=== PATIENT | male | born 1975 | race Caucasian/White ===

== ENCOUNTER 2017-04-28 08:20 | Inpatient (IN) ==
[2017-04-28] MEDS ORDERED: LORazepam 2 MG/1 ML VIAL ONE (08:41)
[2017-04-28] MEDS ORDERED: LORazepam 2 MG/1 ML VIAL IVP ONE ×3 (08:42→11:52)
[2017-04-28] MEDS ORDERED: Sodium Chloride 0.9% 1,000 ML PRIMARY IV ONE (08:42)
[2017-04-28] MEDS ORDERED: NORMAL SALINE 10 ML SYRINGE FLUSH IVP PRN ×2 (08:42→12:56)
[2017-04-28] MEDS ORDERED: Sodium Chloride 0.9% 1,000 ML, Magnesium Sulfate 2gm (Premix) 50 ML with Multivitamin I... IV ONE ×5 (08:44)
[2017-04-28 08:52] LABS: BASOPHILS # (AUTO) 0.09 10*3/UL; BASOPHILS % (AUTO) 1.3 % (0-1); EOSINOPHILS # (AUTO) 0.05 10*3/UL; EOSINOPHILS % (AUTO) 0.7 % (0-8); Hematocrit [HCT] 42.8 % (42.0-52.0); Hemoglobin [HGB] 13.8 g/dL (14.0-18.0); LYMPHOCYTES # (AUTO) 1.93 10*3/uL; MEAN CORPUSCULAR HEMOGLOBIN 30.7 PG (27-31); MEAN CORPUSCULAR HGB CONC 32.2 g/dL (33-37); MEAN CORPUSCULAR VOLUME 95.1 FL (80-90); MEAN PLATELET VOLUME 9.3 FL (7.4-12.2); MONOCYTES # (AUTO) 0.66 10*3/UL (0.3-0.8); MONOCYTES % (AUTO) 9.3 % (5-15); NEUTROPHILS # (AUTO) 4.32 10*3/UL; NEUTROPHILS % (AUTO) 61.3 % (50-80)
[2017-04-28] MEDS ORDERED: Famotidine Inj 20 MG in Normal Saline Flush 10 ML IVP ONE (08:53)
[2017-04-28 08:56] LABS: PLATELET MORPHOLOGY COMMENT NORMAL MORPHOLOGY (NORM); RBC MORPHOLOGY COMMENT NORMAL MORPHOLOGY (NORM); WBC MORPHOLOGY COMMENT NORMAL MORPHOLOGY (NORM)
[2017-04-28 09:06] LABS: BLOOD UREA NITROGEN 10 mg/dL (7-22); BUN/CREATININE RATIO 11.11 (6-20); MAGNESIUM 1.8 mg/dL (1.6-2.4); SERUM ALBUMIN 4.6 g/dL (3.5-4.8)
[2017-04-28 09:07] LABS: SALICYLATE < 1.0 mg/dl (0-20)
[2017-04-28 11:35] LABS: BILIRUBIN,URINE NEGATIVE (NEG); CLARITY,URINE CLEAR (CLEAR); COLOR,URINE YELLOW (Y); GLUCOSE, URINE (UA) NEGATIVE (NEG); NITRATE,URINE NEGATIVE (NEG); OCCULT BLOOD,URINE NEGATIVE (NEG); PH,URINE 5.5 (5.0-8.5); PROTEIN,URINE 30 mg/dl (NEG); UROBILINOGEN,URINE 0.2 EU/dL (0.2)
[2017-04-28 11:59] LABS: AMPHETAMINE SCREEN NEGATIVE (NEG); CANNABINOID SCREEN,URINE NEGATIVE (NEG); COCAINE SCREEN NEGATIVE (NEG); METHADONE URINE SCREEN NEGATIVE (NEG); METHAMPHETAMINES SCREEN,URINE NEGATIVE (NEG); OPIATE SCREEN,URINE NEGATIVE (NEG); URINE SAMPLE TYPE CLEAN CATCH URINE; URINE SPECIFIC GRAVITY - MAN 1.027
[2017-04-28] MEDS ORDERED: Sodium Chloride 0.9% 2,000 ML PRIMARY IV ONE (12:56)
[2017-04-28] MEDS ORDERED: LIDOCAINE W/ SODIUM BICARB 0.5 ML SYR SUBD PRN (12:56)
--- NOTE | 2017-04-28 12:56 | PDOC ---
General Adult HPI - General Chief Complaint: Drug / Alcohol Use &/or Abuse Stated Complaint: ETOH WITHDRAWL Date Seen by Provider: 04/28/17 Time Seen by Provider: 08:35 Source: POSITIVE: Patient Exam Limitations: POSITIVE: No limitations Nurse's Notes Reviewed & Considered: Yes - History of Present Illness Initial Comment: The patient is a 42-year-old male who is brought to the emergency room by an acquaintance. Patient states he has a long-standing history of chronic alcohol abuse. He also has a history of PTSD and anxiety disorder. He states he is on Seroquel, but has been out of this medication for the last 6 days. He drinks alcohol daily. He states he last drank last night, approximately 10 hours [employer] and states he had a liter of vodka at that time. He states he has a history of DVTs and has been treated for this problem in the past at the [facility] in [facility]. The person who brought the patient into the emergency room left shortly after the patient was admitted to the emergency room, and so he is not available for us to collect collateral information. On arrival to the emergency room the patient is hyperventilating and extremely anxious. He is tremulous and is rocking back and forth on the gurney. He keeps asking for a drink of alcohol to prevent him from going in to DTs. Patient states he has a history of alcohol withdrawal seizures. Have you received a tetanus shot in the past 10 years?: No Body Location Affected: REPORTS: Other (Tremulous, hyperventilating, hyperactive ) Timing: REPORTS: Gradual Duration: 4-6 hours Severity: Moderate Quality: REPORTS: Other (Patient denies any pain anywhere) Context: REPORTS: Other (As above) Modifying Factors: improves with: Other (Nausea) Similar Symptoms Previously: Yes (with delirium tremens in the past) Recent Care Received: REPORTS: Denies Any Prior Injuries Related to Current Complaint?: No - Patient Home Medications Home Medications: Home Medications Gabapentin 50 mg PO QAM 04/28/17 Gabapentin [Neurontin] 300 mg PO BEDTIME 04/28/17 Paroxetine HCl [Paxil] 10 mg PO BEDTIME 04/28/17 Quetiapine Fumarate [Seroquel] 300 mg PO BEDTIME 04/28/17 - Patient Allergies Allergies/Adverse Reactions: Allergies 3 Allergy/AdvReac Type Severity Reaction Status Date / Time prazosin Allergy NOT Verified 04/28/17 08:48 APPLICABLE Past Medical History - heen HEENT History: Denies History Cardiovascular History: Hypertension Respiratory History: Other (please comment) Additional Respiratory History: DISTAL ESOPHAGEAL HERNIA Gastrointestinal History: Hepatitis Additional Gastrointestinal History: HEPATITIS C Genitourinary History: Denies History Endocrine History: Denies History Musculoskeletal History: Denies History Prosthesis or Implant: No Neurological History: Denies History Blood Disorders: Denies History Psychiatric History: Anxiety Disorders, PTSD History of Sexually Transmitted Diseases: No Male Reproductive History: Denies History Cancer History: Denies History In Past Year Been Physically Harmed or Verbally Threatened: No (PER PATIENT) History of MDRO: No History of Other Communicable Diseases: No Tobacco Use: Current Every Day Smoker Type of alcohol normally used: Hard Liquor In the Past 12 Months, Have Used or Abuse Any Substance: None Previous Surgical History: Yes Type / Date of Surgery: TUMOR REMOVAL x2 FROM LEGS Anesthesia Reactions: No Malignant Hyperthermia: No Family History of Malignant Hyperthermia: No Significant Family History: No pertinent family hx Past Medical History Reviewed: Reviewed - No Changes ROS - Limitations ROS Limitations: No Limitations Constitution: REPORTS: Denies Symptoms Cardiovascular: REPORTS: Denies Cardiac Symptoms Respiratory: REPORTS: Denies Resp Symptoms Neurological: REPORTS: Denies Neuro Symptoms Gastrointestinal: REPORTS: Nausea Endocrine: REPORTS: Denies Symptoms Musculoskeletal: REPORTS: Denies MS Symptoms Genitourinary: REPORTS: Denies Symptoms Eyes: REPORTS: Denies Symptoms ENT: REPORTS: Denies Symptoms Skin: REPORTS: Denies Skin Symptoms Lympathic: REPORTS: Denies Lympathic Symptoms Immunologic: POSITIVE: Denies Symptoms Psychiatric: POSITIVE: Anxiety General Adult Exam - General Appearance General Appearance: POSITIVE: Alert, No Acute Distress, No Evidence of Trauma, Anxious, Uncooperative (Patient very anxious and tremulous. It is difficult for him to focus on my questions; he is very concerned about going into DTs and asked for alcohol to prevent him from doing so..). NEGATIVE: Cooperative - HEENT HEENT: POSITIVE: Head Inspection Nml, Eyes Inspection Nml, Ears Inspection Nml, Nose Inspection Nml, Oral/Dental Inspect. Nml, Pharynx Inspect. Nml, PERRL, EOMI - Pupils Pupil Size: 4 mm: Bilateral (PERRLA) - Neck Neck: POSITIVE: Normal Inspection, Thyroid Normal - Respiratory Respiratory: POSITIVE: No Respiratory Distress, Breath Sounds Normal, Chest Non- Tender - Cardiovascular Cardiovascular: POSITIVE: Regular Rate & Rhythm, No Murmur, No Gallop, PMI Normal, Tachycardia (110/m) Peripheral Pulses: Radial (R): 2+, Radial (L): 2+ - Abdomen Abdomen: Soft: (All Quadrants), Normal Bowel Sounds: (All Quadrants), Denies Tenderness: (All Quadrants), No Splenomegaly: (All Quadrants), No Hepatomegaly: (All Quadrants), No Guarding: (All Quadrants), No Rebound: (All Quadrants), No Palpable Pulse: (All Quadrants), No Palpabale Mass: (All Quadrants), No Distention: (All Quadrants), No Rigidity: (All Quadrants) - Back Back: POSITIVE: Normal Inspection - Skin Skin: POSITIVE: Normal Color, Warm, Dry, No Rash - Extremities Extremity: Non-Tender: (All Extremities), Normal ROM: (All Extremities), Normal Inspection: (All Extremities) - Neurological / Psychological Neurological: POSITIVE: Oriented X3, leak patcher Normal As Tested, Motor Normal. NEGATIVE: Affect Apporpriate General Adult Progress - Results Reviewed by me Lab Results Reviewed by Me: Yes CBC and BMP: 04/28/17 08:35 04/28/17 08:35 EKG Interpreted/Reviewed By Me:: Yes (sinus tachycardia) EKG Interpretation:: POSITIVE: Normal Intervals, Normal Bazine, Normal QRS, Normal ST/T, Abnormal EKG (Sinus tachycardia) - Patient's Progress Pain Medication Addressed: POSITIVE: Not Applicable Re-Examine Time: 09:25 Re-Examine Comment: Patient given 2 mg of Ativan and was started on a banana bag without potassium, consisting of 1 L of normal saline, 100 mg of thiamine, 1 mg Carroll casted and 2 g magnesium sulfate. Anxiety and tremulousness less. Patient slept for period of time. Re-Examine Time:: 11:30 Re-Examine Comment: Patient again very tremulous and hyperactive. Agitated. Patient given another 2 mg of Ativan IV with good effect. Status: POSITIVE: Improved, Re-Examined Antibiotics Given: No - Consult Consult (If Yes, Name of Consulting MD & Time Called): Yes (Dr. Tinoco, [id number]) Consulting MD will see pt:: POSITIVE: [facility] [place] Admit Counseled: POSITIVE: Patient, RE: Lab Results, RE: DX, RE: Need for F/U Patient Care Time - Estimated PCT Patient Care Time (In Minutes): 65 Vital Signs - Recent Vital Signs Vital Signs: Vital Signs (Last 8 hours) Temp Pulse Resp BP Pulse Ox 04/28/17 08:20 96.7 F L 99 24 123/83 98 - VS Reviewed Vital Signs Reviewed: Yes Discharge Clinical Impression: Alcohol abuse, Alcohol intoxication, Alcohol withdrawal syndrome Discharge Disposition: Admit to Inpatient Condition: Fair Date Decision to Admit to Inpatient: 04/28/17 Time Decision to Admit to Inpatient: 11:35
--- NOTE | 2017-04-28 13:41 | EKG ---
[address] [address] Measurements Intervals [place] Rate: 101 P: 49 MT: 110 QRS: 70 QRSD: 98 T: 65 QT: 382 QTc: 440 Interpretive Statements SINUS TACHYCARDIA WITH SHORT MT INTERVAL POSSIBLE RIGHT VENTRICULAR CONDUCTION DELAY [RSR (QR) IN V1/V2] NONSPECIFIC ST-T CHANGES ABNORMAL RHYTHM ECG No previous ECG available for comparison Electronically Signed On 04-28-17 17:02:24 MDT by Mario You [email or web address]
[2017-04-28] MEDS: ONDANSETRON 4 MG/2 ML VIAL IVP PRN ×2 (14:24→18:34)
[2017-04-28] MEDS ORDERED: Diazepam 10 mg Tab (ETOH withdrawal) PO PRN (15:31)
--- NOTE | 2017-04-28 15:48 | PDOC ---
HPI - History of Present Illness Date and Time of Service: 04/28/2017, 1535 Chief Complaint: Alcohol abuse History of Present Illness: This is a 42-year-old male with post medics stress disorder, chronic hepatitis C , and a binge alcohol pattern of drinking. The patient presented with a blood alcohol level of 245 and I was told that he was in alcohol withdrawal. I discussed this with the patient and told him that this is alcohol intoxication. He states that he has a binge alcohol drinking pattern and his drink heavily for the last 6 days. He used to live in [place], [place], but has recently been in [facility] and started drinking heavily again about a year ago. He states that he no [facility] has a dual diagnosis program where they treat both alcohol addiction and post traumatic stress disorder. He states that he drinks in order to mask his symptoms of PTSD. 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 He has been disabled from his PTSD since at least 2003. He notes he's had several legal problems with his alcohol abuse including driving while under the influence. He is estranged from his family. 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 He states he had 3 years of alcohol sobriety after a dual diagnosis program in the [facility]. He notes to me that he was actually heading back to [place] when he spent some time with his friend here and started drinking again. He was going to try to get tied back into the [facility] system to receive help for his PTSD and for his alcohol abuse. He has no other medical issues. Past Medical History Medical History: 1. Alcohol abuse. 2. PTSD Surgical History: None Pertinent Family History: Denies any history of diabetes or heart disease in the family. Past Social History: Binge alcohol drinks. On disability. Has 2 children that are adults that he is estranged from but he describes as healthy. 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 Smokes. Tobacco Use: Current Every Day Smoker Do you dip or chew tobacco: No In the Past 12 Months, Have Used or Abuse Any of the Following Substance: None Alcohol Use: Heavy Medication / Allergies Home Medications: Home Medications Medication Instructions Recorded Confirmed Type Gabapentin 50 mg PO QAM 04/28/17 04/28/17 History Gabapentin [Neurontin] 300 mg PO BEDTIME 04/28/17 04/28/17 History Paroxetine HCl [Paxil] 10 mg PO BEDTIME 04/28/17 04/28/17 History Quetiapine Fumarate [Seroquel] 300 mg PO BEDTIME 04/28/17 04/28/17 History Allergies/Adverse Reactions: Allergies 3 Allergy/AdvReac Type Severity Reaction Status Date / Time prazosin Allergy NOT Verified 04/28/17 13:45 APPLICABLE Review of Systems - Review of Systems All Systems: Reviewed & No Additional Complaints Except as Stated (I did a 12 point review systems and it is negative other than that discussed in history present illness and that noted below.) - Musculoskeletal Musculoskeletal: REPORTS: Other (Has left ankle pain. States that he had an x- ray done and shared in about a week ago but he does not know [facility]. He has been able to walk on it.) Exam - Vitals Vital Signs: Vital Signs Temperature 98.5 F Temperature Source Temporal Artery Scan Pulse Rate [Pulse Oximeter] 82 Pulse Rate 82 Respiratory Rate 20 Blood Pressure [Right Arm] 137/82 Blood Pressure 137/82 Pulse Ox 95 Oxygen Delivery Method Room Air Height 6 ft Weight 217 lb - General General Appearance: No Acute Distress, Cooperative Additional General Exam Details: Intoxicated, smells of alcohol, no signs or symptoms to suggest alcohol withdrawal. - Head Head Exam: Normal Inspection, Normocephalic, Atraumatic - Eye Eye Exam: POSITIVE: No Scleral Icterus - ENT ENT Exam: POSITIVE: Mucous Membranes Dry - Neck Neck Exam: Normal Inspection, No Tenderness, No Lymphadenopathy, No Thyromegaly - Respiratory Respiratory Exam: POSITIVE: Clear to Auscultation - Bilaterally, Breathing Non Labored, Normal to Percussion and Palpation - Cardiovascular Cardiovascular Exam: POSITIVE: RRR, No Murmur, No Clicks, No Gallops, No Rubs, No JVD - GI/Abdominal GI/Abdominal Exam: POSITIVE: Normal Bowel Sounds, Non Tender, Non Distended, Soft - Rectal Rectal Exam: POSITIVE: Deferred - External Exam: POSITIVE: Deferred Exam: POSITIVE: Deferred - Extremities Extremities Exam: POSITIVE: No Clubbing Present, No Edema Present, No Cyanosis Present, Joint Swelling (Has left ankle swelling, nontender to palpation. No bruising. Pulses are intact bilaterally for dorsalis pedis pulses.) - Back Back Exam: POSITIVE: Normal Inspection, No CVA Tenderness - Neurological Neurological Exam: POSITIVE: Alert, Oriented x 3, No Facial Droop, Speech Intact / Clear, Moves All Extremities Equally - Psychiatric Psychiatric Exam: POSITIVE: Depressed Additional Psychiatric Exam Details: Patient denies suicidal or homicidal ideation. Results - Labs CBC and BMP: 04/28/17 08:35 04/28/17 08:35 Additional Lab Results: Laboratory Results 04/28/17 04/28/17 04/28/17 Range/Units 08:35 08:35 08:35 WBC 7.06 (4.8-10.8) 10^3/uL RBC 4.50 L (4.70-6.10) 10^6/uL Hgb 13.8 L (14.0-18.0) g/dL Hct 42.8 (42.0-52.0) % MCV 95.1 H (80-90) FL MCH 30.7 (27-31) PG MCHC 32.2 L (33-37) g/dL RDW Std Deviation 49.1 (39-50) fL RDW Coeff of Dona 14.6 H (11.5-14.5) % Plt Count 230 (140-350) 10*3/uL MPV 9.3 (7.4-12.2) FL Immature Gran % (Auto) 0.1 (0-5) % Neut % (Auto) 61.3 (50-80) % Lymph % (Auto) 27.3 (10-50) % Gaines % (Auto) 9.3 (5-15) % Eos % (Auto) 0.7 (0-8) % Baso % (Auto) 1.3 H (0-1) % Immature Gran # (Auto) 0.01 10*3/UL Neut # (Auto) 4.32 10*3/UL Lymph # (Auto) 1.93 10*3/uL Gaines # (Auto) 0.66 (0.3-0.8) 10*3/UL Eos # (Auto) 0.05 10*3/UL Baso # (Auto) 0.09 10*3/UL WBC Morphology Comment Normal morphology (NORM) Plt Morphology Comment Normal morphology (NORM) RBC Morph Comment Normal morphology (NORM) Sodium 142 (135-145) meq/L Potassium 4.0 (3.8-5.2) meq/L Chloride 103 (98-112) meq/L Carbon Dioxide 12 L (23-33) meq/L Anion Gap 27 H (5-20) BUN 10 (7-22) mg/dL Creatinine 0.9 (0.70-1.50) mg/dL Estimated GFR > 60 (>60 ml/min/1.73m(2)) BUN/Creatinine Ratio 11.11 (6-20) Glucose 75 L (78-110) mg/dL Calculated Osmolality 291.0 (267-292) mOsm/kg Calcium 9.3 (8.7-10.7) mg/dL Magnesium 1.8 (1.6-2.4) mg/dL Total Bilirubin 1.5 H (0.3-1.2) mg/dL AST 313 H (21-57) IU/L ALT 176 H (21-72) IU/L Alkaline Phosphatase 121 (38-126) IU/L Ammonia (9.0-33.0) UMOL/L Total Protein 7.5 (6.1-8.0) g/dL Albumin 4.6 (3.5-4.8) g/dL Globulin 2.9 (2.50-4.10) g/dL Albumin/Globulin Ratio 1.50 (1.3-2.0) mg/g Lipase (23-300) IU/L TSH 0.363 (0.2700-4.2000) uIU/mL Ur Collection Type Urine Color (Y) Urine Clarity (CLEAR) Urine pH (5.0-8.5) Ur Specific [place] (1.005-1.030) U Specif Grav (Refrac) Urine Protein (NEG) mg/dl Urine Glucose (UA) (NEG) mg/dL Urine Ketones (NEG) Urine Occult Blood (NEG) Urine Nitrate (NEG) Urine Bilirubin (NEG) Urine Urobilinogen (0.2) EU/dL Ur Leukocyte Esterase (NEG) Urine RBC (NONE) /hpf Urine WBC (NONE) Ur Squamous Epith Cells (NONE) Ur Renal Epithelial Cell (NONE) Urine Crystals Urine Bacteria (NONE) Urine Casts (NONE) Urine Mucus (NONE) Urine Trichomonas (NONE) Urine Yeast (NONE) Ur Culture Indicated? Salicylates < 1.0 (0-20) mg/dl Urine Opiates Screen (NEG) Ur Buprenorphine (NEG) Ur Oxycodone Screen (NEG) Urine Methadone Screen (NEG) Ur Propoxyphene Screen (NEG) Acetaminophen < 10.0 (0-30) ug/mL Barbiturate Screen (NEG) U Tricyclic Antidepress (NEG) Phencyclidine Screen (NEG) Amphetamines Screen (NEG) U Methamphetamines Scrn (NEG) Benzodiazepines Screen (NEG) Cocaine Screen (NEG) U Marijuana (THC) Screen (NEG) Serum Alcohol 245 H (0-10) mg/dL 04/28/17 04/28/17 04/28/17 Range/Units 08:42 09:46 14:46 WBC (4.8-10.8) 10^3/uL RBC (4.70-6.10) 10^6/uL Hgb (14.0-18.0) g/dL Hct (42.0-52.0) % MCV (80-90) FL MCH (27-31) PG MCHC (33-37) g/dL RDW Std Deviation (39-50) fL RDW Coeff of Dona (11.5-14.5) % Plt Count (140-350) 10*3/uL MPV (7.4-12.2) FL Immature Gran % (Auto) (0-5) % Neut % (Auto) (50-80) % Lymph % (Auto) (10-50) % Gaines % (Auto) (5-15) % Eos % (Auto) (0-8) % Baso % (Auto) (0-1) % Immature Gran # (Auto) 10*3/UL Neut # (Auto) 10*3/UL Lymph # (Auto) 10*3/uL Gaines # (Auto) (0.3-0.8) 10*3/UL Eos # (Auto) 10*3/UL Baso # (Auto) 10*3/UL WBC Morphology Comment (NORM) Plt Morphology Comment (NORM) RBC Morph Comment (NORM) Sodium (135-145) meq/L Potassium (3.8-5.2) meq/L Chloride (98-112) meq/L Carbon Dioxide (23-33) meq/L Anion Gap (5-20) BUN (7-22) mg/dL Creatinine (0.70-1.50) mg/dL Estimated GFR (>60 ml/min/1.73m(2)) BUN/Creatinine Ratio (6-20) Glucose (78-110) mg/dL Calculated Osmolality (267-292) mOsm/kg Calcium (8.7-10.7) mg/dL Magnesium (1.6-2.4) mg/dL Total Bilirubin (0.3-1.2) mg/dL AST (21-57) IU/L ALT (21-72) IU/L Alkaline Phosphatase (38-126) IU/L Ammonia < 9 L (9.0-33.0) UMOL/L Total Protein (6.1-8.0) g/dL Albumin (3.5-4.8) g/dL Globulin (2.50-4.10) g/dL Albumin/Globulin Ratio (1.3-2.0) mg/g Lipase 258 (23-300) IU/L TSH (0.2700-4.2000) uIU/mL Ur Collection Type Clean catch urine Urine Color Yellow (Y) Urine Clarity Clear (CLEAR) Urine pH 5.5 (5.0-8.5) Ur Specific [place] >=1.030 (1.005-1.030) U Specif Grav (Refrac) 1.027 Urine Protein 30 A (NEG) mg/dl Urine Glucose (UA) Negative (NEG) mg/dL Urine Ketones >=160 (NEG) Urine Occult Blood Negative (NEG) Urine Nitrate Negative (NEG) Urine Bilirubin Negative (NEG) Urine Urobilinogen 0.2 (0.2) EU/dL Ur Leukocyte Esterase Negative (NEG) Urine RBC None (NONE) /hpf Urine WBC None (NONE) Ur Squamous Epith Cells None (NONE) Ur Renal Epithelial Cell None (NONE) Urine Crystals None Urine Bacteria None (NONE) Urine Casts None (NONE) Urine Mucus Rare (NONE) Urine Trichomonas None (NONE) Urine Yeast None (NONE) Ur Culture Indicated? Culture not set Salicylates (0-20) mg/dl Urine Opiates Screen Negative (NEG) Ur Buprenorphine Negative (NEG) Ur Oxycodone Screen Negative (NEG) Urine Methadone Screen Negative (NEG) Ur Propoxyphene Screen Negative (NEG) Acetaminophen (0-30) ug/mL Barbiturate Screen Negative (NEG) U Tricyclic Antidepress Negative (NEG) Phencyclidine Screen Negative (NEG) Amphetamines Screen Negative (NEG) U Methamphetamines Scrn Negative (NEG) Benzodiazepines Screen Positive H (NEG) Cocaine Screen Negative (NEG) U Marijuana (THC) Screen Negative (NEG) Serum Alcohol (0-10) mg/dL Assessment and Plan - Patient Problems (1) Alcohol abuse Current Visit: Yes Status: Acute Code(s): F10.10 - Alcohol abuse, uncomplicated (2) Alcohol intoxication Current Visit: Yes Status: Acute Code(s): F10.929 - Alcohol use, unspecified with intoxication, unspecified (3) PTSD (post-traumatic stress disorder) Current Visit: Yes Status: Acute Code(s): F43.10 - Post-traumatic stress disorder, unspecified - Assessment / Plan Additional Assessment/Plan Details: At this time, there is clinically no alcohol withdrawal. This is a patient that has alcohol intoxication. He states his drinking is in relation to PTSD and his goal was to get to the [facility] system as [facility] for their [facility] diagnosis program of some type for both PTSD and alcohol abuse therapy. His liver enzymes are elevated because he has hepatitis C and is drinking alcohol as well. He is not a candidate at this time for hepatitis C therapy. It is likely that this patient could go into alcohol withdrawal with his binge pattern drinking. We placed a call to the [facility] system, and we'll try to get the patient transferred there if we can have him stabilized from any alcohol withdrawal that develops in the next 24 hours. I think that the resources for PTSD therapy are much better in that system. For the left ankle, we will get an x-ray to make sure that there is no fracture. Check electrolytes tomorrow. Lots of fluids as the patient is clearly dehydrated. Discussed the plan with the patient and he agreed.
--- NOTE | 2017-04-28 16:13 | DI ---
Exam: FILM OTHER left ankle INDICATION: Patient states he rolled his ankle one week ago, pain to lateral aspect of ankle COMPARISON: none FINDINGS: 2 views of the left ankle are obtained. No fracture or malalignment. Joint spaces maintained. No joint effusion. Mortise joint is intact. No calcaneal spurs. No arthritic changes identified. Soft tissue swelling overlying the lateral and medial malleolus and anteriorly. There is soft tissue subcutaneous edema in the lower leg also noted. Remaining solid Tissues are unremarkable by radiograph exam. IMPRESSION: No fracture or malalignment. Soft tissue swelling surrounding the ankle and serpiginous edema in the lower leg.
[2017-04-28] MEDS: Sodium Chloride 0.9% 1,000 ML PRIMARY IV SCH (16:27)
[2017-04-28] MEDS: Diazepam Inj (ETOH withdrawal)10 MG/2 ML CARPUJECT IVP PRN ×3 (18:43→23:39)
[2017-04-28] MEDS ORDERED: ChlordiazePOXIDE 25mg Cap (ETOH withdrawal) PO SCH (21:00)
[2017-04-29] MEDS: Sodium Chloride 0.9% 1,000 ML PRIMARY IV SCH ×3 (00:03→17:24)
[2017-04-29] MEDS: Diazepam Inj (ETOH withdrawal)10 MG/2 ML CARPUJECT IVP PRN ×3 (01:11→10:29)
[2017-04-29 05:14] LABS: BASOPHILS # (AUTO) 0.02 10*3/UL; BASOPHILS % (AUTO) 0.5 % (0-1); EOSINOPHILS # (AUTO) 0.13 10*3/UL; EOSINOPHILS % (AUTO) 3.5 % (0-8); Hematocrit [HCT] 35.3 % (42.0-52.0); Hemoglobin [HGB] 11.4 g/dL (14.0-18.0); LYMPHOCYTES # (AUTO) 1.19 10*3/uL; MEAN CORPUSCULAR HEMOGLOBIN 30.4 PG (27-31); MEAN CORPUSCULAR HGB CONC 32.3 g/dL (33-37); MEAN CORPUSCULAR VOLUME 94.1 FL (80-90); MEAN PLATELET VOLUME 9.9 FL (7.4-12.2); MONOCYTES % (AUTO) 13.4 % (5-15); NEUTROPHILS % (AUTO) 50.8 % (50-80); RED BLOOD COUNT 3.75 10^6/uL (4.70-6.10)
[2017-04-29 05:31] LABS: BLOOD UREA NITROGEN 5 mg/dL (7-22); BUN/CREATININE RATIO 7.14 (6-20); MAGNESIUM 1.8 mg/dL (1.6-2.4); SERUM ALBUMIN 3.1 g/dL (3.5-4.8)
[2017-04-29 05:38] LABS: PLATELET MORPHOLOGY COMMENT NORMAL MORPHOLOGY (NORM); RBC MORPHOLOGY COMMENT NORMAL MORPHOLOGY (NORM); WBC MORPHOLOGY COMMENT NORMAL MORPHOLOGY (NORM)
[2017-04-29] MEDS ORDERED: ChlordiazePOXIDE Cap 25 MG CAPSULE PO SCH (09:00)
[2017-04-29] MEDS ORDERED: Dexmedetomidine/NS 400 MCG/100 ML INFUS..BTL IV ONE (10:42)
[2017-04-29] MEDS ORDERED: DIAZEPAM 10 MG/2 ML (5 MG/1 ML) CARPUJECT IVP ONE (10:54)
[2017-04-29] MEDS ORDERED: Dexmedetomidine/NS 400 MCG/100 ML INFUS..BTL IV SCH (11:00)
[2017-04-29] MEDS ORDERED: LIDOCAINE W/ SODIUM BICARB 0.5 ML SYR SUBD PRN (12:16)
[2017-04-29] MEDS ORDERED: NORMAL SALINE 10 ML SYRINGE FLUSH IVP PRN (12:16)
[2017-04-29] MEDS ORDERED: ONDANSETRON 4 MG/2 ML VIAL IVP PRN (12:16)
[2017-04-29] MEDS ORDERED: Diazepam Inj (ETOH withdrawal)10 MG/2 ML CARPUJECT IVP PRN (12:16)
[2017-04-29] MEDS ORDERED: Diazepam 10 mg Tab (ETOH withdrawal) PO PRN (12:16)
[2017-04-29] MEDS ORDERED: LORazepam Inj(ETOH withdrawal) 2 MG/ML VIAL IVP PRN (14:43)
[2017-04-29] MEDS ORDERED: LORazepam 1 mg tab (ETOH withdrawal) PO PRN (14:43)
[2017-04-29] MEDS: Dexmedetomidine/NS 400 MCG/100 ML INFUS..BTL IV SCH ×2 (16:04→22:00)
[2017-04-29] MEDS: ChlordiazePOXIDE Cap 25 MG CAPSULE PO SCH ×2 (16:04→20:25)
--- NOTE | 2017-04-29 19:02 | PDOC(PROG) ---
Date and Time of Service: 12/27/2016, 1900 Interval History: Patient is clearly in delirium tremens and detox and went into it early this afternoon. In the morning he was fine, somewhat sleepy, and was resting comfortably, but became very agitated, quite sure as his acute alcohol intoxication wore off. The patient's girlfriend or ex-girlfriend from [facility] called and offered information about the patient. She states that he drinks very heavily until he runs out of money each month and when he gets his disability check he goes and drinks again. He has been having a habit of presenting to hospitals when he runs out of money and cannot buy alcohol. He was just recently discharged from a rehabilitation facility. Objective : Data - Labs CBC and BMP: 04/29/17 04:25 04/29/17 04:25 Objective : Exam - General General Appearance: Severe Distress (Severe agitation today but required both Precedex and benzodiazepines) - Eye Eye Exam: No Scleral Icterus - ENT ENT Exam: Mucous Membranes Moist - Respiratory Respiratory Exam: Clear to Auscultation - Bilaterally, Breathing Non Labored - Cardiovascular Cardiovascular Exam: RRR, No Murmur, No Clicks, No Gallops, No Rubs, No JVD - GI/Abdominal GI/Abdominal Exam: Normal Bowel Sounds, Non Tender, Non Distended, Soft - Extremities Extremities Exam: No Clubbing Present, No Edema Present, No Cyanosis Present, Joint Swelling (Left ankle, about the same as yesterday.) - Neurological Neurological Exam: Alert, Oriented x 3 (Thus far, not hallucinating.), No Facial Droop, Speech Intact / Clear Assessment and Plan - Patient Problems (1) Delirium tremens Current Visit: Yes Status: Acute Code(s): F10.231 - Alcohol dependence with withdrawal delirium (2) Alcohol abuse Current Visit: Yes Status: Chronic Code(s): F10.10 - Alcohol abuse, uncomplicated (3) Alcohol intoxication Current Visit: Yes Status: Resolved Code(s): F10.929 - Alcohol use, unspecified with intoxication, unspecified (4) PTSD (post-traumatic stress disorder) Current Visit: Yes Status: Acute Code(s): F43.10 - Post-traumatic stress disorder, unspecified - Assessment / Plan Additional Assessment/Plan Details: Transfer to the ICU for Precedex drip, and benzodiazepines. Pharmacy in for me today that we are on a national shortage of Valium, so we will switch to Ativan. Continue Librium. Naltrexone may be a good option for this patient to try and discourage heavy drinking. I may consider starting that if the patient does well with his detox. However having had multiple episodes of alcohol detox, he is a much greater risk of having adverse effects happen. Replace potassium. ICU monitoring. Prognosis now is extremely guarded.
[2017-04-30] MEDS: Sodium Chloride 0.9% 1,000 ML PRIMARY IV SCH ×2 (01:32→09:16)
[2017-04-30] MEDS: Dexmedetomidine/NS 400 MCG/100 ML INFUS..BTL IV SCH ×2 (02:14→08:05)
[2017-04-30 04:33] LABS: BASOPHILS # (AUTO) 0.03 10*3/UL; BASOPHILS % (AUTO) 0.9 % (0-1); EOSINOPHILS # (AUTO) 0.24 10*3/UL; EOSINOPHILS % (AUTO) 7.4 % (0-8); Hematocrit [HCT] 34.8 % (42.0-52.0); Hemoglobin [HGB] 11.5 g/dL (14.0-18.0); MEAN CORPUSCULAR HEMOGLOBIN 31.2 PG (27-31); MEAN CORPUSCULAR VOLUME 94.3 FL (80-90); MEAN PLATELET VOLUME 10.3 FL (7.4-12.2); MONOCYTES # (AUTO) 0.38 10*3/UL (0.3-0.8); MONOCYTES % (AUTO) 11.7 % (5-15); NEUTROPHILS % (AUTO) 49.2 % (50-80); RED BLOOD COUNT 3.69 10^6/uL (4.70-6.10)
[2017-04-30 04:35] LABS: PLATELET MORPHOLOGY COMMENT NORMAL MORPHOLOGY (NORM); RBC MORPHOLOGY COMMENT NORMAL MORPHOLOGY (NORM); WBC MORPHOLOGY COMMENT NORMAL MORPHOLOGY (NORM)
[2017-04-30 04:46] LABS: BLOOD UREA NITROGEN 3 mg/dL (7-22); BUN/CREATININE RATIO 4.28 (6-20); MAGNESIUM 1.8 mg/dL (1.6-2.4); SERUM ALBUMIN 3.3 g/dL (3.5-4.8)
[2017-04-30] MEDS: ChlordiazePOXIDE Cap 25 MG CAPSULE PO SCH (08:51)
[2017-04-30 11:23] VITALS: O2SAT 95
[2017-04-30 13:46] VITALS: BP 133/98; RESP 18; TEMP 98.5
[2017-04-30] MEDS ORDERED: LORazepam Inj(ETOH withdrawal) 2 MG/ML VIAL IVP PRN (14:19)
[2017-04-30] MEDS ORDERED: ONDANSETRON 4 MG/2 ML VIAL IVP PRN (14:19)
[2017-04-30] MEDS ORDERED: LIDOCAINE W/ SODIUM BICARB 0.5 ML SYR SUBD PRN (14:19)
[2017-04-30] MEDS ORDERED: NORMAL SALINE 10 ML SYRINGE FLUSH IVP PRN (14:19)
[2017-04-30] MEDS ORDERED: LORazepam 1 mg tab (ETOH withdrawal) PO PRN (14:19)
[2017-04-30] MEDS ORDERED: ChlordiazePOXIDE Cap 25 MG CAPSULE PO SCH (15:00)
--- NOTE | 2017-04-30 15:14 | DCSUMMARY ---
Hospitalization Summary Admit Date: 04/28/17 Discharge Date: 04/30/17 Primary Diagnosis:: alcohol withdrawal, resolved Secondary Diagnosis:: 1. Acute alcohol intoxication. 2. Chronic alcoholism Hospital Course: This 42-year-old male with hepatitis C and PTSD that showed up to the emergency room with a blood alcohol of 245 and was irritable, agitated, and was thought to be in alcohol withdrawal. When I admitted him he was clearly not in alcohol withdrawal but intoxicated. On day 2 of the hospital stay, the patient did go into alcohol withdrawal and required Precedex therapy as well as benzodiazepines. As we had a shortage of Valium, and use Ativan. He is to Precedex drip and our policy at this hospital is to keep patients on IV drips because of the complexity of the IV drip, in the ICU. Luckily, this patient was very fast recover from his alcohol withdrawal and we were able to titrate off his Precedex drip today. He is alert, wishes to leave, and has been nonchalant in terms of his approach to his alcoholism. Sometimes he'll tell us that he's wanting to get help, and then in the same breath, he turns red around and states that he wants to get out of here to drink. He is conveyed different opinions to different people. The patient had a swollen left ankle, we did x-ray, no evidence of fracture. It is consistent with a sprain. We wrapped it with an Tee wrap and placed ice on it and have instructed him to continue to use ice and elevation to help him overcome this. He does not have chest pain, shortness breath, nausea or vomiting, abdominal pain, or agitation or tremors. I examined him twice today. Patient is discharged. Assessment and Plan: 1. As per discharge assessments noted 2. Disposition: Patient is discharged home 3. Condition on discharge, stable and improved. 4. Diet: regular diet 5. Activities: Stop drinking alcohol 6. Follow-Up: 1. Visit your primary care provider within the [place]. 2. 7. Medications at the Time of Discharge: Home Medications Medication Instructions Recorded Confirmed Type Gabapentin 50 mg PO QAM 04/28/17 04/28/17 History Gabapentin [Neurontin] 300 mg PO BEDTIME 04/28/17 04/28/17 History Paroxetine HCl [Paxil] 10 mg PO BEDTIME 04/28/17 04/28/17 History Quetiapine Fumarate [Seroquel] 300 mg PO BEDTIME 04/28/17 04/28/17 History The patient can resume his medications as per the [facility]. At this time , I think with the alcoholism and insistent alcohol use I would recommend that the patient not take these medications as I do not know whether the alcohol is making his symptoms worse or not. 8. Time, care, counseling and coordination of care for this discharge is greater than 30 minutes. Exam - Vitals Vital Signs: Vital Signs Temperature 98.5 F Temperature Source Oral Pulse Rate [Apical] 86 Pulse Rate [Bilateral Apical] 66 Pulse Rate [Pulse Oximeter] 87 Pulse Rate 89 Respiratory Rate 18 Blood Pressure [Left Arm] 133/98 Blood Pressure [Right Arm] 134/105 Blood Pressure 131/98 Pulse Ox 95 Oxygen Flow Rate 1 Oxygen Delivery Method Room Air Height 6 ft Was on room air for my evaluation and satting above 91%. - General General Appearance: No Acute Distress, Cooperative - Head Head Exam: Normal Inspection, Normocephalic, Atraumatic - Eye Eye Exam: POSITIVE: No Scleral Icterus - ENT ENT Exam: POSITIVE: Mucous Membranes Moist - Respiratory Respiratory Exam: POSITIVE: Clear to Auscultation - Bilaterally, Breathing Non Labored - Cardiovascular Cardiovascular Exam: POSITIVE: RRR, No Murmur, No Clicks, No Gallops, No Rubs, No JVD - GI/Abdominal GI/Abdominal Exam: POSITIVE: Normal Bowel Sounds, Non Tender, Non Distended, Soft - Extremities Extremities Exam: POSITIVE: No Clubbing Present, No Edema Present, No Cyanosis Present - Neurological Neurological Exam: POSITIVE: Alert, Oriented x 3, Normal Gait, No Facial Droop, Speech Intact / Clear, Moves All Extremities Equally Data Perinent Studies: Laboratory Results 04/28/17 04/28/17 04/28/17 Range/Units 08:35 08:35 08:35 WBC 7.06 (4.8-10.8) 10^3/uL RBC 4.50 L (4.70-6.10) 10^6/uL Hgb 13.8 L (14.0-18.0) g/dL Hct 42.8 (42.0-52.0) % MCV 95.1 H (80-90) FL MCH 30.7 (27-31) PG MCHC 32.2 L (33-37) g/dL RDW Std Deviation 49.1 (39-50) fL RDW Coeff of Dona 14.6 H (11.5-14.5) % Plt Count 230 (140-350) 10*3/uL MPV 9.3 (7.4-12.2) FL Immature Gran % (Auto) 0.1 (0-5) % Neut % (Auto) 61.3 (50-80) % Lymph % (Auto) 27.3 (10-50) % [place] % (Auto) 9.3 (5-15) % Eos % (Auto) 0.7 (0-8) % Baso % (Auto) 1.3 H (0-1) % Immature Gran # (Auto) 0.01 10*3/UL Neut # (Auto) 4.32 10*3/UL Lymph # (Auto) 1.93 10*3/uL [place] # (Auto) 0.66 (0.3-0.8) 10*3/UL Eos # (Auto) 0.05 10*3/UL Baso # (Auto) 0.09 10*3/UL WBC Morphology Comment Normal morphology (NORM) Plt Morphology Comment Normal morphology (NORM) RBC Morph Comment Normal morphology (NORM) PT (9.7-11.4) secs INR (0.00-5.90) N/A Sodium 142 (135-145) meq/L Potassium 4.0 (3.8-5.2) meq/L Chloride 103 (98-112) meq/L Carbon Dioxide 12 L (23-33) meq/L Anion Gap 27 H (5-20) BUN 10 (7-22) mg/dL Creatinine 0.9 (0.70-1.50) mg/dL Estimated GFR > 60 (>60 ml/min/1.73m(2)) BUN/Creatinine Ratio 11.11 (6-20) Glucose 75 L (78-110) mg/dL Calculated Osmolality 291.0 (267-292) mOsm/kg Calcium 9.3 (8.7-10.7) mg/dL Magnesium 1.8 (1.6-2.4) mg/dL Total Bilirubin 1.5 H (0.3-1.2) mg/dL AST 313 H (21-57) IU/L ALT 176 H (21-72) IU/L Alkaline Phosphatase 121 (38-126) IU/L Ammonia (9.0-33.0) UMOL/L Total Protein 7.5 (6.1-8.0) g/dL Albumin 4.6 (3.5-4.8) g/dL Globulin 2.9 (2.50-4.10) g/dL Albumin/Globulin Ratio 1.50 (1.3-2.0) mg/g Lipase (23-300) IU/L TSH 0.363 (0.2700-4.2000) uIU/mL Ur Collection Type Urine Color (Y) Urine Clarity (CLEAR) Urine pH (5.0-8.5) Ur Specific [place] (1.005-1.030) U Specif Grav (Refrac) Urine Protein (NEG) mg/dl Urine Glucose (UA) (NEG) mg/dL Urine Ketones (NEG) Urine Occult Blood (NEG) Urine Nitrate (NEG) Urine Bilirubin (NEG) Urine Urobilinogen (0.2) EU/dL Ur Leukocyte Esterase (NEG) Urine RBC (NONE) /hpf Urine WBC (NONE) Ur Squamous Epith Cells (NONE) Ur Renal Epithelial Cell (NONE) Urine Crystals Urine Bacteria (NONE) Urine Casts (NONE) Urine Mucus (NONE) Urine Trichomonas (NONE) Urine Yeast (NONE) Ur Culture Indicated? Salicylates < 1.0 (0-20) mg/dl Urine Opiates Screen (NEG) Ur Buprenorphine (NEG) Ur Oxycodone Screen (NEG) Urine Methadone Screen (NEG) Ur Propoxyphene Screen (NEG) Acetaminophen < 10.0 (0-30) ug/mL Barbiturate Screen (NEG) U Tricyclic Antidepress (NEG) Phencyclidine Screen (NEG) Amphetamines Screen (NEG) U Methamphetamines Scrn (NEG) Benzodiazepines Screen (NEG) Cocaine Screen (NEG) U Marijuana (THC) Screen (NEG) Serum Alcohol 245 H (0-10) mg/dL 04/28/17 04/28/17 04/28/17 Range/Units 08:42 09:46 14:46 WBC (4.8-10.8) 10^3/uL RBC (4.70-6.10) 10^6/uL Hgb (14.0-18.0) g/dL Hct (42.0-52.0) % MCV (80-90) FL MCH (27-31) PG MCHC (33-37) g/dL RDW Std Deviation (39-50) fL RDW Coeff of Dona (11.5-14.5) % Plt Count (140-350) 10*3/uL MPV (7.4-12.2) FL Immature Gran % (Auto) (0-5) % Neut % (Auto) (50-80) % Lymph % (Auto) (10-50) % [place] % (Auto) (5-15) % Eos % (Auto) (0-8) % Baso % (Auto) (0-1) % Immature Gran # (Auto) 10*3/UL Neut # (Auto) 10*3/UL Lymph # (Auto) 10*3/uL [place] # (Auto) (0.3-0.8) 10*3/UL Eos # (Auto) 10*3/UL Baso # (Auto) 10*3/UL WBC Morphology Comment (NORM) Plt Morphology Comment (NORM) RBC Morph Comment (NORM) PT (9.7-11.4) secs INR (0.00-5.90) N/A Sodium (135-145) meq/L Potassium (3.8-5.2) meq/L Chloride (98-112) meq/L Carbon Dioxide (23-33) meq/L Anion Gap (5-20) BUN (7-22) mg/dL Creatinine (0.70-1.50) mg/dL Estimated GFR (>60 ml/min/1.73m(2)) BUN/Creatinine Ratio (6-20) Glucose (78-110) mg/dL Calculated Osmolality (267-292) mOsm/kg Calcium (8.7-10.7) mg/dL Magnesium (1.6-2.4) mg/dL Total Bilirubin (0.3-1.2) mg/dL AST (21-57) IU/L ALT (21-72) IU/L Alkaline Phosphatase (38-126) IU/L Ammonia < 9 L (9.0-33.0) UMOL/L Total Protein (6.1-8.0) g/dL Albumin (3.5-4.8) g/dL Globulin (2.50-4.10) g/dL Albumin/Globulin Ratio (1.3-2.0) mg/g Lipase 258 (23-300) IU/L TSH (0.2700-4.2000) uIU/mL Ur Collection Type Clean catch urine Urine Color Yellow (Y) Urine Clarity Clear (CLEAR) Urine pH 5.5 (5.0-8.5) Ur Specific [place] >=1.030 (1.005-1.030) U Specif Grav (Refrac) 1.027 Urine Protein 30 A (NEG) mg/dl Urine Glucose (UA) Negative (NEG) mg/dL Urine Ketones >=160 (NEG) Urine Occult Blood Negative (NEG) Urine Nitrate Negative (NEG) Urine Bilirubin Negative (NEG) Urine Urobilinogen 0.2 (0.2) EU/dL Ur Leukocyte Esterase Negative (NEG) Urine RBC None (NONE) /hpf Urine WBC None (NONE) Ur Squamous Epith Cells None (NONE) Ur Renal Epithelial Cell None (NONE) Urine Crystals None Urine Bacteria None (NONE) Urine Casts None (NONE) Urine Mucus Rare (NONE) Urine Trichomonas None (NONE) Urine Yeast None (NONE) Ur Culture Indicated? Culture not set Salicylates (0-20) mg/dl Urine Opiates Screen Negative (NEG) Ur Buprenorphine Negative (NEG) Ur Oxycodone Screen Negative (NEG) Urine Methadone Screen Negative (NEG) Ur Propoxyphene Screen Negative (NEG) Acetaminophen (0-30) ug/mL Barbiturate Screen Negative (NEG) U Tricyclic Antidepress Negative (NEG) Phencyclidine Screen Negative (NEG) Amphetamines Screen Negative (NEG) U Methamphetamines Scrn Negative (NEG) Benzodiazepines Screen Positive H (NEG) Cocaine Screen Negative (NEG) U Marijuana (THC) Screen Negative (NEG) Serum Alcohol (0-10) mg/dL 04/29/17 04/29/17 04/29/17 Range/Units 04:25 04:25 04:25 WBC 3.74 L (4.8-10.8) 10^3/uL RBC 3.75 L (4.70-6.10) 10^6/uL Hgb 11.4 L (14.0-18.0) g/dL Hct 35.3 L (42.0-52.0) % MCV 94.1 H (80-90) FL MCH 30.4 (27-31) PG MCHC 32.3 L (33-37) g/dL RDW Std Deviation 47.2 (39-50) fL RDW Coeff of Dona 14.2 (11.5-14.5) % Plt Count 139 L (140-350) 10*3/uL MPV 9.9 (7.4-12.2) FL Immature Gran % (Auto) 0 (0-5) % Neut % (Auto) 50.8 (50-80) % Lymph % (Auto) 31.8 (10-50) % [place] % (Auto) 13.4 (5-15) % Eos % (Auto) 3.5 (0-8) % Baso % (Auto) 0.5 (0-1) % Immature Gran # (Auto) 0 10*3/UL Neut # (Auto) 1.90 10*3/UL Lymph # (Auto) 1.19 10*3/uL [place] # (Auto) 0.50 (0.3-0.8) 10*3/UL Eos # (Auto) 0.13 10*3/UL Baso # (Auto) 0.02 10*3/UL WBC Morphology Comment Normal morphology (NORM) Plt Morphology Comment Normal morphology (NORM) RBC Morph Comment Normal morphology (NORM) PT 11.4 (9.7-11.4) secs INR 1.07 (0.00-5.90) N/A Sodium 137 (135-145) meq/L Potassium 3.4 L (3.8-5.2) meq/L Chloride 108 (98-112) meq/L Carbon Dioxide 21 L (23-33) meq/L Anion Gap 8 (5-20) BUN 5 L (7-22) mg/dL Creatinine 0.7 (0.70-1.50) mg/dL Estimated GFR > 60 (>60 ml/min/1.73m(2)) BUN/Creatinine Ratio 7.14 (6-20) Glucose 104 (78-110) mg/dL Calculated Osmolality 280.0 (267-292) mOsm/kg Calcium 7.9 L (8.7-10.7) mg/dL Magnesium 1.8 (1.6-2.4) mg/dL Total Bilirubin 1.6 H (0.3-1.2) mg/dL AST 141 H (21-57) IU/L ALT 107 H (21-72) IU/L Alkaline Phosphatase 75 (38-126) IU/L Ammonia (9.0-33.0) UMOL/L Total Protein 5.7 L (6.1-8.0) g/dL Albumin 3.1 L (3.5-4.8) g/dL Globulin 2.6 (2.50-4.10) g/dL Albumin/Globulin Ratio 1.10 L (1.3-2.0) mg/g Lipase (23-300) IU/L TSH (0.2700-4.2000) uIU/mL Ur Collection Type Urine Color (Y) Urine Clarity (CLEAR) Urine pH (5.0-8.5) Ur Specific [place] (1.005-1.030) U Specif Grav (Refrac) Urine Protein (NEG) mg/dl Urine Glucose (UA) (NEG) mg/dL Urine Ketones (NEG) Urine Occult Blood (NEG) Urine Nitrate (NEG) Urine Bilirubin (NEG) Urine Urobilinogen (0.2) EU/dL Ur Leukocyte Esterase (NEG) Urine RBC (NONE) /hpf Urine WBC (NONE) Ur Squamous Epith Cells (NONE) Ur Renal Epithelial Cell (NONE) Urine Crystals Urine Bacteria (NONE) Urine Casts (NONE) Urine Mucus (NONE) Urine Trichomonas (NONE) Urine Yeast (NONE) Ur Culture Indicated? Salicylates (0-20) mg/dl Urine Opiates Screen (NEG) Ur Buprenorphine (NEG) Ur Oxycodone Screen (NEG) Urine Methadone Screen (NEG) Ur Propoxyphene Screen (NEG) Acetaminophen (0-30) ug/mL Barbiturate Screen (NEG) U Tricyclic Antidepress (NEG) Phencyclidine Screen (NEG) Amphetamines Screen (NEG) U Methamphetamines Scrn (NEG) Benzodiazepines Screen (NEG) Cocaine Screen (NEG) U Marijuana (THC) Screen (NEG) Serum Alcohol (0-10) mg/dL 04/30/17 04/30/17 Range/Units 03:55 03:55 WBC 3.25 L (4.8-10.8) 10^3/uL RBC 3.69 L (4.70-6.10) 10^6/uL Hgb 11.5 L (14.0-18.0) g/dL Hct 34.8 L (42.0-52.0) % MCV 94.3 H (80-90) FL MCH 31.2 H (27-31) PG MCHC 33.0 (33-37) g/dL RDW Std Deviation 46.4 (39-50) fL RDW Coeff of Dona 14.0 (11.5-14.5) % Plt Count 128 L (140-350) 10*3/uL MPV 10.3 (7.4-12.2) FL Immature Gran % (Auto) 0 (0-5) % Neut % (Auto) 49.2 L (50-80) % Lymph % (Auto) 30.8 (10-50) % [place] % (Auto) 11.7 (5-15) % Eos % (Auto) 7.4 (0-8) % Baso % (Auto) 0.9 (0-1) % Immature Gran # (Auto) 0 10*3/UL Neut # (Auto) 1.60 10*3/UL Lymph # (Auto) 1.00 10*3/uL [place] # (Auto) 0.38 (0.3-0.8) 10*3/UL Eos # (Auto) 0.24 10*3/UL Baso # (Auto) 0.03 10*3/UL WBC Morphology Comment Normal morphology (NORM) Plt Morphology Comment Normal morphology (NORM) RBC Morph Comment Normal morphology (NORM) PT (9.7-11.4) secs INR (0.00-5.90) N/A Sodium 139 (135-145) meq/L Potassium 3.6 L (3.8-5.2) meq/L Chloride 109 (98-112) meq/L Carbon Dioxide 20 L (23-33) meq/L Anion Gap 10 (5-20) BUN 3 L (7-22) mg/dL Creatinine 0.7 (0.70-1.50) mg/dL Estimated GFR > 60 (>60 ml/min/1.73m(2)) BUN/Creatinine Ratio 4.28 L (6-20) Glucose 113 H (78-110) mg/dL Calculated Osmolality 285.0 (267-292) mOsm/kg Calcium 8.6 L (8.7-10.7) mg/dL Magnesium 1.8 (1.6-2.4) mg/dL Total Bilirubin 1.1 (0.3-1.2) mg/dL AST 125 H (21-57) IU/L ALT 108 H (21-72) IU/L Alkaline Phosphatase 78 (38-126) IU/L Ammonia (9.0-33.0) UMOL/L Total Protein 5.9 L (6.1-8.0) g/dL Albumin 3.3 L (3.5-4.8) g/dL Globulin 2.6 (2.50-4.10) g/dL Albumin/Globulin Ratio 1.20 L (1.3-2.0) mg/g Lipase (23-300) IU/L TSH (0.2700-4.2000) uIU/mL Ur Collection Type Urine Color (Y) Urine Clarity (CLEAR) Urine pH (5.0-8.5) Ur Specific [place] (1.005-1.030) U Specif Grav (Refrac) Urine Protein (NEG) mg/dl Urine Glucose (UA) (NEG) mg/dL Urine Ketones (NEG) Urine Occult Blood (NEG) Urine Nitrate (NEG) Urine Bilirubin (NEG) Urine Urobilinogen (0.2) EU/dL Ur Leukocyte Esterase (NEG) Urine RBC (NONE) /hpf Urine WBC (NONE) Ur Squamous Epith Cells (NONE) Ur Renal Epithelial Cell (NONE) Urine Crystals Urine Bacteria (NONE) Urine Casts (NONE) Urine Mucus (NONE) Urine Trichomonas (NONE) Urine Yeast (NONE) Ur Culture Indicated? Salicylates (0-20) mg/dl Urine Opiates Screen (NEG) Ur Buprenorphine (NEG) Ur Oxycodone Screen (NEG) Urine Methadone Screen (NEG) Ur Propoxyphene Screen (NEG) Acetaminophen (0-30) ug/mL Barbiturate Screen (NEG) U Tricyclic Antidepress (NEG) Phencyclidine Screen (NEG) Amphetamines Screen (NEG) U Methamphetamines Scrn (NEG) Benzodiazepines Screen (NEG) Cocaine Screen (NEG) U Marijuana (THC) Screen (NEG) Serum Alcohol (0-10) mg/dL Radiologic data: [facility] [place] [address] [facility]. [facility] [place] [address] PH: DD: [phone] FAX: [phone] ~DIAGNOSTIC IMAGING REPORT~ Patient: ODELL MAJANO : 1975 Sex: M Age: 42 Exam Name: XR ANKLE 2VW Exam Date: 04/28/17 Report # : [id number] CPT Code: 27045 EMR/MR #: [id number] Ordering: ZAIDA SINGER Admiting: ZAIDA SINGER DO Primary: NONE,NONE Attending: ZAIDA SINGER DO Signed Exam: FILM OTHER left ankle INDICATION: Patient states he rolled his ankle one week ago, pain to lateral aspect of ankle COMPARISON: none FINDINGS: 2 views of the left ankle are obtained. No fracture or malalignment. Joint spaces maintained. No joint effusion. Mortise joint is intact. No calcaneal spurs. No arthritic changes identified. Soft tissue swelling overlying the lateral and medial malleolus and anteriorly. There is soft tissue subcutaneous edema in the lower leg also noted. Remaining solid Tissues are unremarkable by radiograph exam. IMPRESSION: No fracture or malalignment. Soft tissue swelling surrounding the ankle and serpiginous edema in the lower leg. Dictated By: Stanford Thomson MD Signed By: 04/28/17 1613 Stanford Thomson MD Patient Problems - Patient Problem List (1) Delirium tremens Current Visit: Yes Status: Resolved Code(s): F10.231 - Alcohol dependence with withdrawal delirium Category: Medical (2) Alcohol abuse Current Visit: Yes Status: Chronic Code(s): F10.10 - Alcohol abuse, uncomplicated Category: Medical (3) Alcohol intoxication Current Visit: Yes Status: Resolved Code(s): F10.929 - Alcohol use, unspecified with intoxication, unspecified Category: Medical (4) PTSD (post-traumatic stress disorder) Current Visit: Yes Status: Chronic Code(s): F43.10 - Post-traumatic stress disorder, unspecified Category: Medical (5) Left ankle sprain Current Visit: Yes Status: Acute Comment: Improved today, less swelling. Code(s): S93.402A - Sprain of unspecified ligament of left ankle, initial encounter Qualifiers: Encounter type: initial encounter Involved ligament of ankle: unspecified ligament Qualified Code(s): S93.402A - Sprain of unspecified ligament of left ankle, initial encounter Category: Medical
== END 2017-04-30 15:20 | disposition home or self-care (01) | DRG 897 ==
LOC: ER 08:20 → MED/SURG 08:20
PROVIDERS: ADMIT Family Medicine; ATTEND Family Medicine